=== PATIENT | female | born 1940 | race Caucasian/White ===

== ENCOUNTER → 2017-09-09 | Outpatient (CLI) | payer MEDICARE, OTHER ==
--- NOTE | 2017-09-09 13:29 | US ---
EXAMINATION TYPE: US venous doppler duplex LE RT DATE OF EXAM: 09/09/2017 1:24 PM COMPARISON: NONE CLINICAL HISTORY: R60.9 EDEMA. Pt states right foot pain and swelling/ no known prior DVT SIDE PERFORMED: TECHNIQUE: The lower extremity deep venous system is examined utilizing real time linear array sonog billy with graded compression, doppler sonography and color-flow sonography. VESSELS IMAGED: External Iliac Vein (EIV) Common Femoral Vein Deep Femoral Vein Greater Saphenous Vein * Femoral Vein Popliteal Vein Small Saphenous Vein * Proximal Calf Veins (* superficial vessels) Grayscale, color doppler, spectral doppler imaging performed of the deep veins of the right lower ext remity. There is normal flow, compressibility, vascular waveforms. Right Leg: Negative for DVT IMPRESSION: No sonographic evidence of deep venous thrombosis within the right lower extremity.
== END | disposition home or self-care (01) ==
LOC: RADUSWWP 12:51
PROVIDERS: ATTEND Internal Medicine Geriatric Medicine
DX: R60.9 Edema, unspecified (principal)

== ENCOUNTER 2021-09-02 18:31 | Emergency (ER) | payer MEDICARE, OTHER ==
[2021-09-02 19:12] VITALS: RESP 18; TEMP 98.5
[2021-09-02] MEDS ORDERED: HYDROcodone/APAP 5-325MG 1 EACH TAB PO STA (19:35)
--- NOTE | 2021-09-02 19:41 | ED ---
Upper Extremity HPI - General Chief Complaint: Extremity Injury, Upper Stated Complaint: Fall/3 steps/shoulder injury Time Seen by Provider: 09/02/21 19:16 Source: patient, RN notes reviewed Mode of arrival: ambulatory Limitations: no limitations - History of Present Illness Initial Comments: This is a pleasant 80-year-old female who had a trip and fall at home and fell on some steps onto her left shoulder. This occurred just prior to arrival. Patient complains sharp pain was exacerbated by movement. No radiation. No other injuries. Alleviated somewhat by rest. Located to the anterior aspect of left shoulder. No head or neck injury. Patient is not on blood thinners No headache, no fever or chills, no changes in vision or hearing, no sore throat or difficulty with speech, no neck pain, no chest pain or shortness of breath, no abdominal pain, no nausea or vomiting, no changes in urination or bowel movements, no numbness or tingling, no skin rashes or lesions. Past medical, surgical, social, and family history reviewed. MD Complaint: Injury to:: left, shoulder Onset/Timin -: hour(s) Other Extremity Injury: Shoulder: Left Handedness: right Place: home Improves With: immobilization Worsens With: movement of extremity Context: direct blow Associated Symptoms: denies other symptoms - Related Data Home Medications Medication Instructions Recorded Confirmed Atorvastatin [Lipitor] 20 mg PO DAILY 09/02/21 09/02/21 Furosemide [Lasix] 20 mg PO DAILY 09/02/21 09/02/21 Insulin Regular, Human [Novolin R] See Protocol SQ AC-TID PRN 09/02/21 09/02/21 Metoprolol Tartrate [Lopressor] 50 mg PO DAILY 09/02/21 09/02/21 Omeprazole 20 mg PO DAILY 09/02/21 09/02/21 glipiZIDE/METFORMIN HCL 2 tab PO BID 09/02/21 09/02/21 [glipiZIDE/METFORMIN HCL 5-500 mg] hydrALAZINE HCL [Apresoline] 50 mg PO TID 09/02/21 09/02/21 Previous Rx's Medication Instructions Recorded Docusate [Colace] 100 mg PO DAILY #30 capsule 09/02/21 HYDROcodone/APAP 5-325MG [[place] 1 tab PO Q6HR PRN 3 Days #12 tab 09/02/21 5-325] Allergies Allergy/AdvReac Type Severity Reaction Status Date / Time tomato AdvReac SORE MOUTH Verified 09/02/21 20:14 Review of Systems ROS Statement: Those systems with pertinent positive or pertinent negative responses have been documented in the HPI. ROS Other: All systems not noted in ROS Statement are negative. Past Medical History Past Medical History: Diabetes Mellitus, Hypertension History of Any Multi-Drug Resistant Organisms: None Reported Past Psychological History: No Psychological Hx Reported Smoking Status: Never smoker Past Alcohol Use History: None Reported Past Drug Use History: None Reported General Exam - General Exam Comments Initial Comments: Continue this 2 through 12 grossly intact. Patient in minimal distress. Patient does not appear to be ill or toxic. Vital signs reviewed Limitations: no limitations General appearance: alert, in distress Head exam: Present: atraumatic, normocephalic, normal inspection Eye exam: Present: normal appearance, PERRL, EOMI. Absent: scleral icterus, conjunctival injection, periorbital swelling ENT exam: Present: normal exam, normal oropharynx, mucous membranes moist, normal external ear exam. Absent: mucous membranes dry Neck exam: Present: normal inspection, full ROM. Absent: tenderness, meningismus, lymphadenopathy Respiratory exam: Present: normal lung sounds bilaterally. Absent: respiratory distress, wheezes, rales, rhonchi, stridor, chest wall tenderness, accessory muscle use, decreased breath sounds, prolonged expiratory Cardiovascular Exam: Present: regular rate, normal rhythm, normal heart sounds. Absent: systolic murmur, diastolic murmur, rubs, gallop, clicks GI/Abdominal exam: Present: soft, normal bowel sounds. Absent: distended, tenderness, guarding, rebound, rigid Extremities exam: Present: normal inspection, full ROM, normal capillary refill. Absent: tenderness, pedal edema, joint swelling, calf tenderness Left Shoulder Exam: Present: tenderness (Patient has tenderness to the lateral aspect of the clavicle. No break in skin integrity.), other. Absent: swelling, abrasion, deformity, crepitus, dislocation, erythema Upper Arm exam: Present: normal inspection. Absent: full ROM, tenderness, swelling Elbow exam: Present: normal inspection. Absent: full ROM, tenderness, swelling, abrasion Forearm Wrist exam: Present: normal inspection, full ROM. Absent: tenderness, swelling, abrasion Hand Wrist exam: Present: normal inspection. Absent: tenderness, swelling, abrasion Back exam: Present: normal inspection Neurological exam: Present: alert, oriented X3, CN II-XII intact Psychiatric exam: Present: normal affect, normal mood Skin exam: Present: warm, dry, intact, normal color. Absent: rash Course Vital Signs 09/02/21 19:07 Temperature 98.5 F Pulse Rate 74 Respiratory 18 Rate Blood Pressure 168/80 O2 Sat by Pulse 98 Oximetry - Reevaluation(s) Reevaluation #1: 09/02/21 20:32 Medical record is reviewed Symptoms are improved here in the emergency department Patient is informed of results and questions answered Patient in no distress Reevaluation #2: 09/02/21 20:33 Neurovascular status intact, patient resting comfortably with a sling. - Consultations Consultation #1: Case discussed in detail with the on-call orthopedic physician, Dr. Moore recommends sling only and follow-up within next 48 hours at the orthopedic office. Medical Decision Making - Medical Decision Making Isolated injury to left shoulder. Patient most tender of the distal apical area. Pain medication ordered. Plain x-rays ordered. Reevaluation. Patient looks well otherwise. No evidence of head or neck injury. The case was discussed in detail with ED attending physician. Presentation, findings, treatment plan discussed in detail. Case discussed with on-call orthopedics. Patient was told to return to the ER for any signs or symptoms worsen. Told to return immediately if any other problems arise. All questions answered. Treatment plan discussed. Patient in agreement Every effort has been made to ensure accuracy of this dictation. However, due to the limitations of electronic medical records and dictation devices, errors in charting still occur. Transportation Agent Dr. Dao - Radiology Data Radiology results: pending (Report pending, comminuted humeral head fracture as read by me. Reviewed with ED attending physician as well), image reviewed Disposition Clinical Impression: Fracture of humerus, proximal, left, closed Disposition: HOME SELF-CARE Condition: Good Instructions (If sedation given, give patient instructions): Arm Fracture in Adults (ED), How to Use a Sling (ED) Additional Instructions: Call tomorrow morning to set up a follow-up appointment with orthopedics. Return to the ER immediately if any symptoms worsen, new symptoms arise, or any other problems develop. Is patient prescribed a controlled substance at d/c from ED?: Yes Referrals: Prakash Moore MD [Medical Doctor] - 1-2 days Time of Disposition: 20:35
[2021-09-02] MEDS ORDERED: ACET/COD 300 MG/30 MG STARTER PACK 6 TAB BTL PO STA (20:36)
[2021-09-02] MEDS ORDERED: DOCUSATE 100 MG CAP PO STA (20:36)
--- NOTE | 2021-09-02 20:37 | XR ---
EXAMINATION TYPE: XR clavicle LT, XR shoulder complete LT DATE OF EXAM: 09/02/2021 8:15 PM INDICATION: Patient age:Female; 80 years old; Reason for study: Left shoulder injury pain; COMPARISON: None TECHNIQUE: AP and cephalic tilt views were obtained of the left clavicle. Frontal lateral images were taken of the left shoulder. FINDINGS: Comminuted left proximal humerus fracture. Clavicles within normal limits. The visualized chest is wi thin normal limits. IMPRESSION: Comminuted left proximal humerus fracture.
[2021-09-02 20:59] VITALS: BP 131/60; PULSE 70
== END 2021-09-02 21:00 | disposition home or self-care (01) ==
LOC: EC 18:31
DX: S42.202A Unspecified fracture of upper end of left humerus, initial encounter for closed fracture (principal); E11.9 Type 2 diabetes mellitus without complications; I10 Essential (primary) hypertension; Z79.4 Long term (current) use of insulin; Z79.899 Other long term (current) drug therapy; Z91.018 Allergy to other foods; W10.9XXA Fall (on) (from) unspecified stairs and steps, initial encounter; Y92.009 Unspecified place in unspecified non-institutional (private) residence as the place of occurrence of the external cause
CPT/HCPCS: 99283

== ENCOUNTER → 2022-01-15 | Outpatient (CLI) | payer MEDICARE, OTHER ==
--- NOTE | 2022-01-16 14:59 | BD ---
EXAMINATION TYPE: Axial Bone Density DATE OF EXAM: 01/15/2022 COMPARISON: NONE CLINICAL HISTORY: 81 years year old Female. ICD-10 CODE: M81.0 AGE-RELATED OSTEOPOROSIS Height: 5 FT 1 3/4 IN Weight: 203 FRAX RISK QUESTIONS: Alcohol (3 or more units per day): NO Family History (Parent hip fracture): NO Glucocorticoids (More than 3mos): NO (Ex: prednisone, prednisolone, methylprednisolone, dexamethasone, and hydrocortisone). History of Fracture in Adulthood: YES Secondary Osteoporosis: 1. Type 1 Diabetes: NO 2. Hyperthyroidism: NO 3. Menopause before 45: NO 4. Malnutrition: NO 5. Chronic liver disease: NO Rheumatoid Arthritis: NO Current Tobacco Use: NO RISK FACTORS HISTORY OF: Surgery to Spine/Hip(right/left)/Wrist (right/left): NO Family History of Osteoporosis: NO Active: YES Diet low in dairy products/other sources of calcium: NO Postmenopausal woman: YES Take estrogen and/or progesterone medications: NO Lost more than 2 inches in height since high school: NO Frequent falls: NO Poor Health: GOOD Hyperparathyroidism: NO Adrenal Insufficiency: NO MEDICATIONS: Additional Medications: ATORVASTATIN, METOPROLOL, OMEPRAZOLE, GLIPIZIDE, METFORMIN, Additional History: EXAM MEASUREMENTS: Bone mineral densitometry was performed using the [employer] System. Bone mineral density as measured about the Lumbar spine is: ----- L1-L4(G/cm2): 1.273 T Score Values are as follows: ----- L1: -0.4 ----- L2: -0.1 ----- L3: 1.1 ----- L4: 1.9 ----- L1-L4: 0.8 Bone mineral density has: INCREASED 10.2 % since study of: 2009 Bone mineral density about the R hip (g/cm2): 0.771 Bone mineral density about the L hip (g/cm2): 0.734 T Score values are as follows: -----R Neck: -1.9 -----L Neck: -2.2 -----R Total: -0.3 -----L Total: -0.3 Bone mineral density has: DECREASED -7.4 % since study of: 2009 FRAX%s: The graph provided illustrates a 21.5 % chance for a major osteoporotic fx and a 5.8 % chance for the hips probability for fx in 10 years time. IMPRESSION: Osteopenia (T Score between -2.5 and -1). There is slightly increased risk of fracture and the patient may be considered for treatment. Re-Screen 2-5 years. NOTE: T-SCORE=SD OF THE YOUNG ADULT MEAN.
--- NOTE | 2022-01-16 18:39 | MM ---
Reason for Exam: Screening (asymptomatic). Last screening mammogram was performed 12 month(s) ago. Patient History: Menarche at age 14. First Full-Term at age 21. Postmenopausal. 08/02/2004, Benign Stereotactic Core Biopsy on the left side. Maternal aunt had breast cancer. Risk Values: Gabbi 5 year model risk: 1.4%. NCI Lifetime model risk: 2.4%. Prior Study Comparison: 01/03/2019 Bilateral MG screening mammo w CAD - 2, [facility]. 01/09/2020 Bilateral MG screening mammo w CAD - 2, [facility]. 01/14/2021 Bilateral MG screening mammo w CAD - 2, [facility]. Tissue Density: There are scattered fibroglandular densities. Findings: Analyzed By CAD. There is no suspicious group of microcalcifications or new suspicious mass in either breast. Overall Assessment: Benign, BI-RAD 2 Management: Screening Mammogram of both breasts in 1 year. 1. Patient should continue monthly self breast exams. 2. A clinical breast exam by your physician is recommended on an annual basis. 3. This exam should not preclude additional follow-up of suspicious palpable abnormalities. Electronically signed and approved by: Manjeet Shetty M.D. Radiologist
== END | disposition home or self-care (01) ==
LOC: RADMAMWWP 12:31
PROVIDERS: ATTEND Internal Medicine Geriatric Medicine
DX: Z12.31 Encounter for screening mammogram for malignant neoplasm of breast (principal); M81.0 Age-related osteoporosis without current pathological fracture; M85.89 Other specified disorders of bone density and structure, multiple sites; Z78.0 Asymptomatic menopausal state; Z80.3 Family history of malignant neoplasm of breast
CPT/HCPCS: 77063; 77067; 77080

== ENCOUNTER → 2023-03-13 | Outpatient (CLI) | payer MEDICARE, OTHER ==
--- NOTE | 2023-03-13 11:10 | XR ---
EXAMINATION TYPE: XR chest 2V DATE OF EXAM: 03/13/2023 COMPARISON: NONE HISTORY: Shortness of breath TECHNIQUE: Frontal and lateral views of the chest are obtained. FINDINGS: Scattered senescent parenchymal changes noted. Hyperinflation compatible with COPD. Mild increased density right medial lung base could reflect developing infiltrate. Correlate clinical ly. No evidence for atelectasis. Heart size is stable. Mediastinal structures are stable and grossly unremarkable. No evidence for hilar prominence. Degenerative changes dorsal spine. IMPRESSION: 1. Mild increased density right medial lung base could reflect developing infiltrate. Correlate clini kevin.
== END | disposition home or self-care (01) ==
LOC: RADXRMAIN 10:34
PROVIDERS: ATTEND Internal Medicine Geriatric Medicine
DX: J98.4 Other disorders of lung (principal)
CPT/HCPCS: 71046

== ENCOUNTER → 2023-03-18 | Outpatient (CLI) | payer MEDICARE, OTHER ==
--- NOTE | 2023-03-19 08:27 | MM ---
Reason for Exam: Screening (asymptomatic). Last mammogram was performed 1 year(s) and 2 month(s) ago. Patient History: Menarche at age 14. First Full-Term at age 21. Postmenopausal. 08/02/2004, Benign Stereotactic Core Biopsy on the left side. Maternal aunt had breast cancer. Risk Values: Gabbi 5 year model risk: 1.4%. NCI Lifetime model risk: 2.2%. Prior Study Comparison: 01/09/2020 Bilateral MG screening mammo w CAD - 2, [facility]. 01/14/2021 Bilateral MG screening mammo w CAD - 2, [facility]. 01/15/2022 Bilateral MG 3D screening mammo w/cad, [facility]. Tissue Density: There are scattered fibroglandular densities. Findings: Analyzed By CAD. There is no suspicious group of microcalcifications or new suspicious mass in either breast. Benign calcifications. Bilateral chronic nodularity stable. Overall Assessment: Benign, BI-RAD 2 Management: Screening Mammogram of both breasts in 1 year. . Patient should continue monthly self-breast exams. A clinical breast exam by your physician is recommended on an annual basis. This exam should not preclude additional follow-up of suspicious palpable abnormalities. Note on Gabbi scores and lifetime risk: 1. A Gabbi score greater than 3% is considered moderate risk. If this is the case, consider specialist referral to assess eligibility for a risk reducing agent. 2. If overall lifetime risk for the development of breast cancer is 20% or higher, the patient may qualify for future screening with alternating mammogram and breast MRI. Electronically signed and approved by: Trevin Vega M.D. Radiologis
== END | disposition home or self-care (01) ==
LOC: RADMAMWWP 12:28
PROVIDERS: ATTEND Internal Medicine Geriatric Medicine
DX: Z12.31 Encounter for screening mammogram for malignant neoplasm of breast (principal); Z80.3 Family history of malignant neoplasm of breast; Z78.0 Asymptomatic menopausal state
CPT/HCPCS: 77063; 77067